=== PATIENT | female | born 1950 | race Two or more races ===

== ENCOUNTER 2018-05-16 13:12 | Emergency (ER) | payer OTHER ==
[2018-05-16 13:17] VITALS: BP 131/61; PULSE 96; TEMP 98; BMI 26.5
--- NOTE | 2018-05-16 13:46 | PDOC ---
History of Present Illness - General Chief Complaint: Pain Stated Complaint: FEVER - History of Present Illness Initial Comments: 67-year-old female presents for evaluation of pelvic pressure and dysuria 2 days without other associated symptoms 05/16/18 13:45 Past History - Past Medical History Allergies/Adverse Reactions: Allergies Allergy/AdvReac Type Severity Reaction Status Date / Time No Known Allergies Allergy Verified 05/16/18 13:21 Home Medications: Ambulatory Orders Nitrofurantoin Monohyd/M-Cryst [Macrobid -] 100 mg PO BID #14 capsule 05/16/18 COPD: No Other medical history: arthitis - Suicide/Smoking/Psychosocial Hx Smoking History: Never smoked Have you smoked in the past 12 months: No Hx Alcohol Use: No Substance Use Type: None Review of Systems - Review of Systems : Yes: Dysuria All Other Systems: Reviewed and Negative *Physical Exam - Vital Signs Last Vital Signs Temp Pulse Resp BP Pulse Ox 98 F 96 H 18 131/61 97 05/16/18 13:15 05/16/18 13:15 05/16/18 13:15 05/16/18 13:15 05/16/18 13:15 - Physical Exam Comments: HEAD: NC/AT EYES: Conjuntiva clear Ears: Canals and TM's normal NOSE: No d/c THROAT: Moist mucous membrances, oral pharanx clear, uvula midline NECK: Supple without adenopathy CARDIAC: S1 S2 LUNGS: CTA Full and Equal breath sounds ABDOMEN: Soft NT ND MS: Full ROM in all joints without edema NEUROLOGIC: No gross sensory or motor deficits, NVID SKIN: Normal color and temperature no lesions or rashes 05/16/18 13:45 *DC/Admit/Observation/Transfer Diagnosis at time of Disposition: UTI (urinary tract infection) - Discharge Dispostion Disposition: HOME Condition at time of disposition: Stable Decision to Admit order: No - Prescriptions Prescriptions: Nitrofurantoin Monohyd/M-Cryst [Macrobid -] 100 mg PO BID #14 capsule - Referrals Referrals: Clem David [Non Staff, Medical] - - Patient Instructions Printed Discharge Instructions: Urinary Tract Infection Additional Instructions: Return to the emergency room should her symptoms worsen or don't resolve. Please take all the antibiotics as directed. Follow up with primary care physician in one to 2 days for further evaluation and treatment options. - Post Discharge Activity
[2018-05-16 14:09] LABS: URINE APPEARANCE CLEAR; URINE BILIRUBIN NEGATIVE (<2.0 mg/dL); URINE COLOR AMBER; URINE GLUCOSE (UA) NEGATIVE (NEGATIVE); URINE KETONE NEGATIVE (NEGATIVE); URINE LEUK ESTERASE NEGATIVE (NEGATIVE); URINE NITRITE POSITIVE (NEGATIVE); URINE PROTEIN NEGATIVE (NEGATIVE)
[2018-05-16 14:15] LABS: EPI CELLS RARE /HPF (FEW); URINE BACTERIA FEW /hpf (NONE SEEN); URINE MUCUS RARE
--- NOTE | 2018-05-16 15:01 | PDOC ---
*Physical Exam - Vital Signs Last Vital Signs Temp Pulse Resp BP Pulse Ox 98 F 96 H 18 131/61 97 05/16/18 13:15 05/16/18 13:15 05/16/18 13:15 05/16/18 13:15 05/16/18 13:15 - Physical Exam General Appearance: Yes: Nourished, Appropriately Dressed. No: Apparent Distress HEENT: positive: EOMI, JELLY Neck: positive: Trachea midline, Supple. negative: Tender, Rigid, Lymphadenopathy (R), Lymphadenopathy (L) Respiratory/Chest: positive: Lungs Clear, Normal Breath Sounds. negative: Rales , Rhonchi, Wheezing Cardiovascular: positive: Regular Rhythm, Regular Rate, S1, S2 (present). negative: Murmur Gastrointestinal/Abdominal: positive: Normal Bowel Sounds, Tender (suprapubic region), Flat, Soft. negative: Distended, Rebound Integumentary: positive: Normal Color, Dry, Warm Neurologic: positive: Fully Oriented, Alert, Normal Mood/Affect, Normal Response , Motor Strength / ED Treatment Course - LABORATORY CBC & Chemistry Diagram: 05/16/18 15:49 05/16/18 15:49 - ADDITIONAL ORDERS Additional order review: Laboratory Results 05/16/18 13:53 Urine Color Sweetie Urine Appearance Clear Urine pH 5.0 Ur Specific [place] 1.018 Urine Protein Negative Urine Glucose (UA) Negative Urine Ketones Negative Urine Blood Negative Urine Nitrite Positive Urine Bilirubin Negative Urine Urobilinogen 2.0 H Ur Leukocyte Esterase Negative Urine WBC (Auto) 1 Urine RBC (Auto) <1 Ur Epithelial Cells Rare Urine Bacteria Few Urine Mucus Rare Medical Decision Making - Medical Decision Making 05/16/18 16:38 Sign out received from MARY Armstrong as this patient was elevated from fast track to the main ER. Patient diagnosed with UTI and fast track. When with discharge patient states that she is very dizzy. Was elevated for dizziness workup. 1.labs 2.IV fluids, ceftriaxone 3.reevaluate 05/16/18 18:40 Patient states that she feels much better after IV fluids. States that the dizziness had resolved. However upon planning discharge, patient states that when she sat up the room started spinning again I suspect the patient may have vertigo at this time. Patient given meclizine and head CT ordered. Sign out given to MARY Addison. Pending head CT at this time. *DC/Admit/Observation/Transfer Diagnosis at time of Disposition: Vertigo UTI (urinary tract infection) Qualifiers: Urinary tract infection type: acute cystitis Hematuria presence: without hematuria Qualified Code(s): N30.00 - Acute cystitis without hematuria - Discharge Dispostion Disposition: HOME Condition at time of disposition: Stable - Prescriptions Prescriptions: Meclizine HCl [Antivert -] 25 mg PO BID PRN #14 tablet PRN Reason: Vertigo Nitrofurantoin Monohyd/M-Cryst [Macrobid -] 100 mg PO BID #14 capsule Phenazopyridine HCl [Pyridium -] 100 mg PO TID #15 tablet - Referrals Referrals: Clem David [Non Staff, Medical] - Luis Pemberton MD [Staff Physician] - - Patient Instructions Printed Discharge Instructions: Urinary Tract Infection, DI for Vertigo Additional Instructions: You have a urinary tract infection. This caused by bacteria. Please drink plenty of fluids. Take your antibiotics as prescribed. Finish the entire dose even if you feel better. You may take Tylenol or Motrin as needed for pain. Follow the manufacture's instructions Please follow up with your primary care doctor this week. Return to the emergency department if you have fevers, chills, nausea, vomiting , back pain, or have any changes in your symptoms. Be sure to follow-up with the neurologist listed on your discharge/Dr. Pemberton - Post Discharge Activity Forms/Work/School Notes: Back to Work, Parent(s) Back to Work Note
[2018-05-16] MEDS ORDERED: SODIUM CHLORIDE 1,000 ML IV STA (15:31)
[2018-05-16] MEDS ORDERED: CEFTRIAXONE 1,000 MG in DEXTROSE 5%-WATER - 50 ML IVPB ONE (15:31)
[2018-05-16] MEDS ORDERED: CEFTRIAXONE 1 GM/50 ML BAG ONE (15:39)
[2018-05-16 16:02] LABS: BASO % 0.4 % (0-2.0); EOS % 3.8 % (0-4.5); HEMOGLOBIN 12.5 GM/dL (10.7-15.3); LYMPH % 26.5 % (8-40); MCH 28.8 pg (25.7-33.7); MCHC 33.9 g/dl (32.0-36.0); MEAN CELL VOLUME 84.9 fl (80-96); MEAN PLT VOLUME 10.5 fl (7.5-11.1); MONO % 6.6 % (3.8-10.2); NEUT % 62.7 % (42.8-82.8); PLATELET COUNT 180 K/MM3 (134-434); RBC 4.36 M/mm3 (3.60-5.2); RDW 13.8 % (11.6-15.6); WHITE BLOOD COUNT 10.4 K/mm3 (4.0-10.0)
--- NOTE | 2018-05-16 16:07 | PDOC ---
*Physical Exam - Vital Signs Last Vital Signs Temp Pulse Resp BP Pulse Ox 98 F 96 H 18 131/61 97 05/16/18 13:15 05/16/18 13:15 05/16/18 13:15 05/16/18 13:15 05/16/18 13:15 ED Treatment Course - LABORATORY CBC & Chemistry Diagram: 05/16/18 15:49 05/16/18 15:49 - ADDITIONAL ORDERS Additional order review: Laboratory Results 05/16/18 13:53 Urine Color Sweetie Urine Appearance Clear Urine pH 5.0 Ur Specific [place] 1.018 Urine Protein Negative Urine Glucose (UA) Negative Urine Ketones Negative Urine Blood Negative Urine Nitrite Positive Urine Bilirubin Negative Urine Urobilinogen 2.0 H Ur Leukocyte Esterase Negative Urine WBC (Auto) 1 Urine RBC (Auto) <1 Ur Epithelial Cells Rare Urine Bacteria Few Urine Mucus Rare 05/16/18 15:49 RBC 4.36 MCV 84.9 MCHC 33.9 RDW 13.8 MPV 10.5 Neutrophils % 62.7 Lymphocytes % 26.5 Monocytes % 6.6 Eosinophils % 3.8 D Basophils % 0.4 - Medications Given in the ED: ED Medications Discontinued Medications Generic Name Dose Route Start Last Admin Trade Name Freq PRN Reason Stop Dose Admin Ceftriaxone Sodium 1,000 mg/ 50 mls @ 100 mls/hr 05/16/18 15:31 05/16/18 15: 55 Dextrose IVPB 05/16/18 16:00 100 mls/hr ONCE ONE Administration Medical Decision Making - Medical Decision Making 05/16/18 16:06 Case discussed with MARY Queen. Plan as MARY Queen. *DC/Admit/Observation/Transfer Diagnosis at time of Disposition: UTI (urinary tract infection) - Discharge Dispostion Disposition: HOME Condition at time of disposition: Stable - Prescriptions Prescriptions: Nitrofurantoin Monohyd/M-Cryst [Macrobid -] 100 mg PO BID #14 capsule - Referrals Referrals: Clem David [Non Staff, Medical] - - Patient Instructions Printed Discharge Instructions: Urinary Tract Infection Additional Instructions: Return to the emergency room should her symptoms worsen or don't resolve. Please take all the antibiotics as directed. Follow up with primary care physician in one to 2 days for further evaluation and treatment options. - Post Discharge Activity
[2018-05-16 16:25] LABS: ALBUMIN 3.5 g/dl (3.4-5.0); ALK PHOS 96 U/L (45-117); ANION GAP 4 (8-16); BILIRUBIN,TOTAL 0.5 mg/dL (0.2-1.0); BLOOD UREA NITROGEN 16 mg/dL (7-18); CALCIUM 9.2 mg/dL (8.5-10.1); CHLORIDE 107 mmol/L (98-107); CO2 29 mmol/L (21-32); CREATININE 0.7 mg/dL (0.55-1.02); GLUCOSE,RANDOM 95 mg/dL (74-106); POTASSIUM 4.1 mmol/L (3.5-5.1); SGOT/AST 18 U/L (15-37); SGPT/ALT 28 U/L (12-78); SODIUM 140 mmol/L (136-145); TOT PROT 7.4 g/dl (6.4-8.2)
[2018-05-16] MEDS ORDERED: MECLIZINE HCL 25 MG TABLET (FP) ONE (18:12)
[2018-05-16] MEDS ORDERED: MECLIZINE HCL 25 MG TABLET (FP) PO ONE (18:13)
--- NOTE | 2018-05-16 19:46 | PDOC ---
*Physical Exam - Vital Signs Last Vital Signs Temp Pulse Resp BP Pulse Ox 98 F 96 H 18 131/61 97 05/16/18 13:15 05/16/18 13:15 05/16/18 13:15 05/16/18 13:15 05/16/18 13:15 ED Treatment Course - LABORATORY CBC & Chemistry Diagram: 05/16/18 15:49 05/16/18 15:49 - ADDITIONAL ORDERS Additional order review: Laboratory Results 05/16/18 05/16/18 15:49 13:53 Sodium 140 Potassium 4.1 Chloride 107 Carbon Dioxide 29 Anion Gap 4 L BUN 16 Creatinine 0.7 Creat Clearance w eGFR > 60 Random Glucose 95 Calcium 9.2 Total Bilirubin 0.5 AST 18 ALT 28 Alkaline Phosphatase 96 Total Protein 7.4 Albumin 3.5 Urine Color Sweetie Urine Appearance Clear Urine pH 5.0 Ur Specific [place] 1.018 Urine Protein Negative Urine Glucose (UA) Negative Urine Ketones Negative Urine Blood Negative Urine Nitrite Positive Urine Bilirubin Negative Urine Urobilinogen 2.0 H Ur Leukocyte Esterase Negative Urine WBC (Auto) 1 Urine RBC (Auto) <1 Ur Epithelial Cells Rare Urine Bacteria Few Urine Mucus Rare 05/16/18 15:49 RBC 4.36 MCV 84.9 MCHC 33.9 RDW 13.8 MPV 10.5 Neutrophils % 62.7 Lymphocytes % 26.5 Monocytes % 6.6 Eosinophils % 3.8 D Basophils % 0.4 - Medications Given in the ED: ED Medications Discontinued Medications Generic Name Dose Route Start Last Admin Trade Name Freq PRN Reason Stop Dose Admin Ceftriaxone Sodium 1,000 mg/ 50 mls @ 100 mls/hr 05/16/18 15:31 05/16/18 15: 55 Dextrose IVPB 05/16/18 16:00 100 mls/hr ONCE ONE Administration Sodium Chloride 1,000 mls @ 1,000 mls/hr 05/16/18 15:31 05/16/18 15:55 Normal Saline - IV 05/16/18 16:30 1,000 mls/hr ASDIR STA Administration Meclizine HCl 50 mg 05/16/18 18:13 05/16/18 18:27 Antivert - PO 05/16/18 18:14 50 mg ONCE ONE Administration Progress Note - Progress Note Progress Note: 1901hrs: Pt feels fine now. Denies any dizziness. *DC/Admit/Observation/Transfer Diagnosis at time of Disposition: Vertigo UTI (urinary tract infection) Qualifiers: Urinary tract infection type: acute cystitis Hematuria presence: without hematuria Qualified Code(s): N30.00 - Acute cystitis without hematuria - Discharge Dispostion Disposition: HOME Condition at time of disposition: Stable - Prescriptions Prescriptions: Meclizine HCl [Antivert -] 25 mg PO BID PRN #14 tablet PRN Reason: Vertigo Nitrofurantoin Monohyd/M-Cryst [Macrobid -] 100 mg PO BID #14 capsule Phenazopyridine HCl [Pyridium -] 100 mg PO TID #15 tablet - Referrals Referrals: Clem David [Non Staff, Medical] - Luis Pemberton MD [Staff Physician] - - Patient Instructions Printed Discharge Instructions: Urinary Tract Infection, DI for Vertigo Additional Instructions: You have a urinary tract infection. This caused by bacteria. Please drink plenty of fluids. Take your antibiotics as prescribed. Finish the entire dose even if you feel better. You may take Tylenol or Motrin as needed for pain. Follow the manufacture's instructions Please follow up with your primary care doctor this week. Return to the emergency department if you have fevers, chills, nausea, vomiting , back pain, or have any changes in your symptoms. Be sure to follow-up with the neurologist listed on your discharge/Dr. Pemberton - Post Discharge Activity Forms/Work/School Notes: Back to Work, Parent(s) Back to Work Note
== END 2018-05-16 20:16 | disposition home or self-care (01) ==
LOC: JER 13:12
PROC: 3E03329 Introduction of Other Anti-infective into Peripheral Vein, Percutaneous Approach (ICD-10-PCS; principal; 2018-05-16)
PROC: 3E0337Z Introduction of Electrolytic and Water Balance Substance into Peripheral Vein, Percutaneous Approach (ICD-10-PCS; 2018-05-16)
DX: N30.00 Acute cystitis without hematuria (principal); R42 Dizziness and giddiness
CPT/HCPCS: 36415; 70450-TC; 80053; 81003; 81015; 85025; 87086; 99283-25; J7030

== ENCOUNTER → 2019-06-15 | Outpatient (CLI) | payer OTHER | LOC: YHH 14:44 ==

== ENCOUNTER 2019-07-26 09:15 | Day surgery (SDC) | payer OTHER ==
[2019-07-25 11:15] VITALS: BMI 31.2
[~2019-07-26 09:15] MED LIST: ACETAMINOPHEN 325 MG TABLET (FP) PO PRN
[2019-07-26] MEDS ORDERED: MIDAZOLAM HCL 2 MG/2 ML SINGLE DOSE VIAL ONE (09:30)
[2019-07-26] MEDS ORDERED: CYCLOPENTOLATE HCL 1% OPHTH SOLN 2 ML BOTTLE ONE ×2 (09:32→09:39)
[2019-07-26] MEDS ORDERED: KETOROLAC TROMETHAMINE 0.5% EYE DROP 1 DROP DROPS ONE ×2 (09:32→09:40)
[2019-07-26] MEDS ORDERED: OFLOXACIN 0.3% OPHTHALMIC SOLUTION 5 ML BOTTLE ONE ×2 (09:32→09:39)
[2019-07-26] MEDS ORDERED: TROPICAMIDE 1% OPHTH SOLN 15 ML BOTTLE ONE ×2 (09:32→09:40)
[2019-07-26] MEDS ORDERED: PHENYLEPHRINE 2.5% OPHTH SOLN 15 ML BOTTLE ONE ×2 (09:32→09:39)
[2019-07-26] MEDS: PHENYLEPHRINE 2.5% OPHTH SOLN 15 ML BOTTLE OP SCH ×2 (09:40→09:50)
[2019-07-26] MEDS: CYCLOPENTOLATE HCL 1% OPHTH SOLN 2 ML BOTTLE OP SCH ×2 (09:40→09:50)
[2019-07-26] MEDS: KETOROLAC TROMETHAMINE 0.5% EYE DROP 1 DROP DROPS OP SCH ×2 (09:40→09:50)
[2019-07-26] MEDS: TROPICAMIDE 1% OPHTH SOLN 15 ML BOTTLE OP SCH ×2 (09:40→09:50)
[2019-07-26] MEDS: OFLOXACIN 0.3% OPHTHALMIC SOLUTION 5 ML BOTTLE OP SCH ×2 (09:50→09:53)
[2019-07-26] MEDS ORDERED: CYCLOPENTOLATE HCL 1% OPHTH SOLN 2 ML BOTTLE OS ONE (10:21)
[2019-07-26] MEDS ORDERED: OFLOXACIN 0.3% OPHTHALMIC SOLUTION 5 ML BOTTLE OS ONE (10:21)
[2019-07-26] MEDS ORDERED: KETOROLAC TROMETHAMINE 0.5% EYE DROP 1 DROP DROPS OS ONE (10:21)
[2019-07-26] MEDS ORDERED: TROPICAMIDE 1% OPHTH SOLN 15 ML BOTTLE OS ONE (10:22)
[2019-07-26] MEDS ORDERED: PHENYLEPHRINE 2.5% OPHTH SOLN 15 ML BOTTLE OS ONE (10:22)
[2019-07-26] MEDS ORDERED: TETRACAINE 0.5% OPHTH SOLN 2 ML BOTTLE OS ONE (11:15)
[2019-07-26] MEDS ORDERED: POVIDONE-IODINE 5% OPHTHALMIC PREP 30 ML SOLUTION OS ONE (11:16)
[2019-07-26] MEDS ORDERED: CHONDROITIN SU A/HYALUR SOD 1 KIT IO ONE (11:24)
[2019-07-26] MEDS ORDERED: BSS (NA/CA/MG/K) BALANCED SALT SOLUTION OPHTH SOLN 15 ML BOTTLE OS ONE (11:24)
[2019-07-26] MEDS ORDERED: LIDOCAINE HCL 1% PRESERVATIVE FREE - 30ML VIAL IO ONE (11:24)
[2019-07-26] MEDS ORDERED: EPINEPHrine/PF 1 MG/1 ML (1:1,000) AMPULE SQ ONE (11:28)
[2019-07-26 12:53] VITALS: BP 133/62; PULSE 90; TEMP 98.2
--- NOTE | 2019-07-31 15:54 | SPEC ---
DATE OF OPERATION: 07/26/2019 OPERATION: Phacoemulsification of left cataract with posterior chamber intraocular lens implantation, left eye. Lens used [id number], 19.5 Diopter power, Serial No. [id number]. PREOPERATIVE DIAGNOSIS: Cataract, left eye. POSTOPERATIVE DIAGNOSIS: Cataract, left eye. SURGEON: Vania Mcdowell M.D. ANESTHESIA: Topical MAC. COMPLICATIONS: None. PROCEDURE: The patient was brought to the operating room and correctly identified along with the operative site and the correct intraocular lens johansen. The patient was then prepped and draped in the usual sterile fashion including 5% Betadine solution in the conjunctival sac and an eyelid drape. An eyelid speculum was then placed in the eye. A paracentesis port was created and approximately 0.5 mL of preservative free Lidocaine was then injected into the eye. Viscoelastic was then injected to inflate the anterior chamber. A temporal clear corneal wound was created. A continuous circular capsulorrhexis was performed. The nucleus was then hydrodissected with BSS and removed with phacoemulsification. The remaining cortical material was irrigated and aspirated. Viscoelastic was injected to inflate the capsular bag and the intraocular lens was then implanted into the capsular bag. The remaining Viscoelastic was irrigated and aspirated from the eye. The IOL was noted to be well centered and completely covered by the anterior capsulorrhexis. Topical vancomycin was placed and the eye patched and shielded. All wounds were tested and found to be watertight. No suture was placed. The eye was then shielded. The patient was then discharged from the operating room in stable condition. VANIA MCDOWELL M.D. [id number]
== END 2019-07-26 12:54 | disposition home or self-care (01) ==
LOC: JASU-SURG 09:15
PROVIDERS: ATTEND Ophthalmology
PROC: 08RK3JZ Replacement of Left Lens with Synthetic Substitute, Percutaneous Approach (ICD-10-PCS; principal; 2019-07-26 11:00)
DX: H26.9 Unspecified cataract (principal)

== ENCOUNTER 2019-09-20 06:31 | Day surgery (SDC) | payer OTHER ==
[2019-09-18 15:20] VITALS: BMI 31.2
[~2019-09-20 06:31] MED LIST changes: +CHONDROITIN SU A/HYALUR SOD 1 KIT IO ONE; +EPINEPHrine/PF 1 MG/1 ML (1:1,000) AMPULE SQ ONE; +LIDOCAINE HCL 1% PRESERVATIVE FREE - 30ML VIAL IO ONE; +TETRACAINE 0.5% OPHTH SOLN 2 ML BOTTLE TP ONE; +TROPICAMIDE 1% OPHTH SOLN 15 ML BOTTLE OP SCH
[2019-09-20] MEDS ORDERED: OFLOXACIN 0.3% OPHTHALMIC SOLUTION 5 ML BOTTLE ONE (06:47)
[2019-09-20] MEDS ORDERED: PHENYLEPHRINE 2.5% OPHTH SOLN 15 ML BOTTLE ONE (06:48)
[2019-09-20] MEDS ORDERED: CYCLOPENTOLATE HCL 1% OPHTH SOLN 2 ML BOTTLE ONE (06:48)
[2019-09-20] MEDS ORDERED: KETOROLAC TROMETHAMINE 0.5% EYE DROP 1 DROP DROPS ONE (06:48)
[2019-09-20] MEDS ORDERED: CHONDROITIN SU A/HYALUR SOD 1 KIT ONE (07:04)
[2019-09-20] MEDS ORDERED: EPINEPHrine/PF 1 MG/1 ML (1:1,000) AMPULE ONE (07:08)
[2019-09-20] MEDS ORDERED: LIDOCAINE HCL/PF 1% SDV 5ML VIAL ONE (07:08)
[2019-09-20] MEDS ORDERED: VANCOMYCIN 500 MG VIAL (RESTRICTED TO ID ONLY) ONE (07:08)
[2019-09-20] MEDS: CYCLOPENTOLATE HCL 1% OPHTH SOLN 2 ML BOTTLE OP SCH ×3 (07:09→07:24)
[2019-09-20] MEDS: KETOROLAC TROMETHAMINE 0.5% EYE DROP 1 DROP DROPS OP SCH ×3 (07:09→07:24)
[2019-09-20] MEDS: OFLOXACIN 0.3% OPHTHALMIC SOLUTION 5 ML BOTTLE OP SCH ×3 (07:09→07:24)
[2019-09-20] MEDS ORDERED: WATER FOR INJ,STERILE 10 ML ONE (07:09)
[2019-09-20] MEDS ORDERED: TRYPAN BLUE 0.5 ML DISP.SYRIN ONE (07:09)
[2019-09-20] MEDS ORDERED: POVIDONE-IODINE 5% OPHTHALMIC PREP 30 ML SOLUTION ONE (07:09)
[2019-09-20] MEDS ORDERED: ACETYLCHOLINE 1:100 INTRA-OCUL 20 MG/2 ML KIT ONE (07:09)
[2019-09-20] MEDS: PHENYLEPHRINE 2.5% OPHTH SOLN 15 ML BOTTLE OP SCH ×3 (07:09→07:24)
[2019-09-20] MEDS ORDERED: TETRACAINE 0.5% OPHTH SOLN 2 ML BOTTLE ONE (07:09)
[2019-09-20] MEDS: TROPICAMIDE 1% OPHTH SOLN 15 ML BOTTLE ONE ×2 (07:14→07:24)
[2019-09-20] MEDS ORDERED: MIDAZOLAM HCL 2 MG/2 ML SINGLE DOSE VIAL ONE (07:42)
[2019-09-20] MEDS ORDERED: TETRACAINE 0.5% OPHTH SOLN 2 ML BOTTLE TP ONE (08:06)
[2019-09-20] MEDS ORDERED: LIDOCAINE HCL 1% PRESERVATIVE FREE - 30ML VIAL IO ONE (08:16)
[2019-09-20] MEDS ORDERED: CHONDROITIN SU A/HYALUR SOD 1 KIT IO ONE (08:16)
[2019-09-20] MEDS ORDERED: EPINEPHrine/PF 1 MG/1 ML (1:1,000) AMPULE SQ ONE (08:22)
[2019-09-20] MEDS ORDERED: ONDANSETRON 4 MG/2 ML VIAL IVPUSH PRN (09:06)
[2019-09-20] MEDS ORDERED: LACTATED RINGERS SOLUTION 1,000 ML IV SCH (09:15)
[2019-09-20 09:57] VITALS: BP 144/66; PULSE 90; TEMP 98.3
--- NOTE | 2019-09-20 10:01 | SPEC ---
DATE OF OPERATION: DATE OF DICTATION: 09/20/2019 PREOPERATIVE DIAGNOSIS: Cataract, right eye. POSTOPERATIVE DIAGNOSIS: Cataract, right eye. OPERATION: Phacoemulsification with posterior chamber intraocular lens implantation, right eye. Lens used [id number], 20.0 diopter power, serial number [id number]. SURGEON: Vania Mcdowell M.D. ANESTHESIA: Topical MAC. COMPLICATIONS: None. PROCEDURE: The patient was brought to the operating room and correctly identified along with the operative site and the correct intraocular lens johansen. The patient was then prepped and draped in the usual sterile fashion including 5% Betadine solution in the conjunctival sac and an eyelid drape. An eyelid speculum was then placed in the eye. A paracentesis port was created and approximately 0.5 mL of preservative free Lidocaine was then injected into the eye. Viscoelastic was then injected to inflate the anterior chamber. A temporal clear corneal wound was created. A continuous circular capsulorrhexis was performed. The nucleus was then hydrodissected with BSS and removed with phacoemulsification. The remaining cortical material was irrigated and aspirated. Viscoelastic was injected to inflate the capsular bag and the intraocular lens was then implanted into the capsular bag. The remaining Viscoelastic was irrigated and aspirated from the eye. The IOL was noted to be well centered and completely covered by the anterior capsulorrhexis. Topical vancomycin was placed and the eye patched and shielded. All wounds were tested and found to be watertight. No suture was placed. The eye was then shielded. The patient was then discharged from the operating room in stable condition. VANIA MCDOWELL M.D. [id number]
== END 2019-09-20 09:50 | disposition home or self-care (01) ==
LOC: JASU-SURG 06:31
PROVIDERS: ATTEND Ophthalmology
PROC: 08RJ3JZ Replacement of Right Lens with Synthetic Substitute, Percutaneous Approach (ICD-10-PCS; principal; 2019-09-20 08:00)
DX: H26.9 Unspecified cataract (principal)

== ENCOUNTER 2019-11-10 23:20 | Emergency (ER) | payer OTHER ==
[2019-11-10 23:41] VITALS: BMI 35.2
[2019-11-11] MEDS ORDERED: morphine CARPU-JECT 4 MG/1 ML DISP.SYRIN IVPUSH ONE ×3 (00:03→01:14)
[2019-11-11] MEDS ORDERED: LACTATED RINGERS SOLUTION 1000 ML INFUS.BAG IV ONE ×2 (00:06→00:55)
[2019-11-11] MEDS ORDERED: ONDANSETRON 4 MG/2 ML VIAL IVPB ONE (00:06)
[2019-11-11] MEDS ORDERED: MORPHINE SULFATE 8 MG/ML VIAL ONE (00:11)
[2019-11-11] MEDS ORDERED: ONDANSETRON 4 MG/2 ML VIAL ONE (00:12)
[2019-11-11 00:41] LABS: BASO % 0.3 % (0-2.0); EOS % 0.2 % (0-4.5); HEMATOCRIT 46.2 % (32.4-45.2); HEMOGLOBIN 14.8 GM/dL (10.7-15.3); LYMPH % 28.1 % (8-40); MCH 27.7 pg (25.7-33.7); MCHC 31.9 g/dl (32.0-36.0); MEAN CELL VOLUME 86.9 fl (80-96); MONO % 2.8 % (3.8-10.2); NEUT % 68.6 % (42.8-82.8); PLATELET COUNT 343 K/MM3 (134-434); RBC 5.32 M/mm3 (3.60-5.2); RDW 14.1 % (11.6-15.6); WHITE BLOOD COUNT 13.9 K/mm3 (4.0-10.0)
--- NOTE | 2019-11-11 00:43 | PDOC ---
Documentation entered by Lavinia Haywood SCRIBE, acting as scribe for Jessica Pace MD. Jessica Pace MD: This documentation has been prepared by the Chastity simeon Nirvannie, SCRIBE, under my direction and personally reviewed by me in its entirety. I confirm that the documentation accurately reflects all work, treatment, procedures, and medical decision making performed by me. Attending Attestation - Resident Resident Name: EnedinaTami - ED Attending Attestation I have performed the following: I have examined & evaluated the patient, The case was reviewed & discussed with the resident, I agree w/resident's findings & plan, Exceptions are as noted - HPI HPI: 11/11/19 00:46 The patient is a 68 year old female, with a significant past medical history of , who presents to the emergency department with 1 day of diffuse abdominal pain. As per patient and family at bedside, patient had a colonoscopy today at [facility] and since then she has been experiencing diffuse abdominal pain. She endorses associated nausea with multiple episodes of NBNB emesis. Patient was advised upon discharge she should report to the ED for further evaluation for persistent or worsening abdominal pain. Allergies: NKDA Primary Care Physician: Dr. Trent - Physicial Exam PE: GENERAL: Awake, alert, and fully oriented, in obvious discomfort, writhing on bed, tearful HEAD: No signs of trauma EYES: PERRLA, EOMI, sclera anicteric, conjunctiva clear ENT: Auricles normal inspection, hearing grossly normal, nares patent, oropharynx clear without exudates. Dry mucosa NECK: Normal ROM, supple, no lymphadenopathy, JVD, or masses LUNGS: Breath sounds equal, clear to auscultation bilaterally. No wheezes, and no crackles HEART: Regular rate and rhythm, normal S1 and S2, no murmurs, rubs or gallops ABDOMEN: Soft, distended, diffusely tender, normoactive bowel sounds. +Guarding , +rebound. No masses EXTREMITIES: Normal range of motion, no edema. No clubbing or cyanosis. No cords, erythema, or tenderness NEUROLOGICAL: Cranial nerves II through XII grossly intact. Normal speech, normal gait. Motor and sensation intact SKIN: Warm, dry, normal turgor, no rashes or lesions noted. - Medical Decision Making 11/10/19 23:59 Pt presents in severe pain, writhing on the bed, pale. High suspicion for perforation. IV placed to R AC. Will order pain medication and antiemetic. Stat CT a/p. 11/11/19 00:41 CT reviewed, appears to show free air. Contacted Imaging concrete boom pump operator to verify. Will contact patient's GI at [facility] to discuss. EXAM: CT abdomen and pelvis without contrast FINDINGS: Mild atelectasis and scarring in lung bases. 3 mm subpleural left lower lobe nodule. No pleural effusion. Hepatic steatosis. *Mild perihepatic and perisplenic fluid which is slightly dense. Cannot exclude blood products The gallbladder, pancreas, and adrenal glands are grossly unremarkable. 2 mm nonobstructing left intrarenal calcification. No ureteral calculi or hydronephrosis. No AAA. Generalized mesenteric edema in the lower pelvis and mild free pelvic fluid. *Moderate pneumoperitoneum, compatible with a perforated viscus. The site of perforation is not seen with certainty. Mild small bowel wall thickening in the left abdomen. No obvious appendicitis or small bowel obstruction. Leiomyomatous uterus. Read by: Luis Arita MD 11/11/19 01:05 Call placed to [facility], made aware Dr. Castro is industrial controls technician, resident Dr. Kamlesh Mcconnell discussed case. 11/11/19 01:10 Call placed to [facility], awaiting call back from the general surgeon. 1:45AM Second call placed to [facility] resident Dr. Mcconnell discussed case with Dr. Doe and case was accepted.
--- NOTE | 2019-11-11 00:46 | PDOC ---
History of Present Illness - General Chief Complaint: Pain, Acute Stated Complaint: ABDOMINAL PAIN Time Seen by Provider: 11/10/19 23:58 History Source: Patient Exam Limitations: Language Barrier - History of Present Illness Initial Comments: 11/11/19 00:44 68y F with PMH of GERD presenting to ED with complaints of abdominal pain. Pt had a colonoscopy around 12h ago and has been having abdominal pain ever since. She was discharged and told to go the ER if her pain continues or gets worse. Pt is endorsing diffuse abdominal pain. Has not passed gas or had a bowel movement since the colonoscopy. Endorses 1 episode of emesis. Past History - Past Medical History Allergies/Adverse Reactions: Allergies Allergy/AdvReac Type Severity Reaction Status Date / Time No Known Allergies Allergy Verified 09/20/19 07:08 Home Medications: Ambulatory Orders Unobtainable 11/11/19 Anemia: No Asthma: No Cancer: No Cardiac Disorders: No CVA: No COPD: No CHF: No Dementia: No Diabetes: No GI Disorders: No Disorders: No HTN: No Hypercholesterolemia: No Liver Disease: No Seizures: No Thyroid Disease: No - Psycho Social/Smoking Cessation Hx Smoking History: Never smoked Have you smoked in the past 12 months: No Information on smoking cessation initiated: No Hx Alcohol Use: No Drug/Substance Use Hx: No Substance Use Type: None Review of Systems - Review of Systems Constitutional: No: Symptoms Reported HEENTM: No: Symptoms Reported Respiratory: No: Symptoms reported Cardiac (ROS): Yes: See HPI. No: Symptoms Reported ABD/GI: Yes: See HPI : No: Symptoms Reported Musculoskeletal: No: Symptoms Reported Integumentary: No: Symptoms Reported *Physical Exam - Vital Signs Last Vital Signs Temp Pulse Resp BP Pulse Ox 98.0 F 120 H 22 H 194/140 H 92 L 11/10/19 23:38 11/10/19 23:38 11/10/19 23:38 11/10/19 23:38 11/10/19 23:38 - Physical Exam General Appearance: Yes: Severe Distress, Obese HEENT: positive: EOMI, JELLY Neck: positive: Trachea midline, Supple. negative: Lymphadenopathy (R), Lymphadenopathy (L) Respiratory/Chest: positive: Lungs Clear, Normal Breath Sounds. negative: Paradoxal Breathing, Crackles, Rales, Rhonchi, Stridor, Wheezing Cardiovascular: positive: S1, S2, Tachycardia. negative: Edema, JVD, Murmur Vascular Pulses: Dorsalis-Pedis (R): 2+, Doralis-Pedis (L): 2+ Gastrointestinal/Abdominal: positive: Distended, Guarding, Rebound, Tenderness Extremity: positive: Normal Capillary Refill Integumentary: positive: Normal Color, Dry, Warm Neurologic: positive: employment appeals examiner II-XII NML intact, Fully Oriented, Alert, Normal Mood/ Affect, Normal Response, Motor Strength 02/12 ED Treatment Course - LABORATORY CBC & Chemistry Diagram: 11/11/19 00:06 11/11/19 00:06 - RADIOLOGY Radiology Studies Ordered: Category Date Time Status ABDOMEN & PELVIS CT W/O CONTR [CT] Stat CT Scan 11/11/19 00:01 Taken - Medications Given in the ED: ED Medications Discontinued Medications Generic Name Dose Route Start Last Admin Trade Name Freq PRN Reason Stop Dose Admin Lactated Ringer's 1,000 ml 11/11/19 00:06 11/11/19 00:17 Lactated Ringers Solution IV 11/11/19 00:07 1,000 ml NOW ONE Administration Morphine Sulfate 4 mg 11/11/19 00:03 11/11/19 00:18 Morphine Injection - IVPUSH 11/11/19 00:04 Not Given ONCE ONE Morphine Sulfate 6 mg 11/11/19 00:05 11/11/19 00:16 Morphine Injection - IVPUSH 11/11/19 00:06 6 mg ONCE ONE Administration Ondansetron HCl 4 mg 11/11/19 00:06 11/11/19 00:17 Zofran Injection IVPB 11/11/19 00:07 4 mg ONCE ONE Administration Medical Decision Making - Medical Decision Making 11/11/19 07:58 68y F presenting to ED with abdominal pain s/p colonoscopy. pt is diffusely tender with rebound and guarding. tachycardic, saturating well on RA, normotensive, afebrile. suspicion for perforation. preop labs, fluids, zofran, morphine. CTAP. CT positive for pneumoperitoneum, FF. given more fluids and morphine, zosyn. labs show leukocytosis but normal h/h. call placed to GI clinic in regards to patient status. Called [facility] for transfer given pt had outpt colonsocpoy at [facility]. spoke to Dr. Lopez. accepted transfer. Discharge - Discharge Information Problems reviewed: Yes Clinical Impression/Diagnosis: Perforated abdominal viscus Condition: Stable Disposition: TRANSFER ACUTE CARE/OTHER HOSP - Follow up/Referral Referrals: Rodolfo Trent MD [Staff Physician] - - Patient Discharge Instructions - Post Discharge Activity - Transfer to Acute Care Facility [facility]
[2019-11-11] MEDS ORDERED: PIPERACILLIN/TAZOB 3.375 GM 3.375 GM in DEXTROSE 5%-WATER - 50 ML IVPB ONE (00:55)
[2019-11-11] MEDS ORDERED: PIPERACILLIN/TAZOB 3.375 GM 3.375 GM/50 ML BAG IVPB ONE (01:02)
[2019-11-11] MEDS ORDERED: morphine SULFATE 4 MG/ML VIAL ONE (01:17)
[2019-11-11 01:28] LABS: INR 1.11 (0.83-1.09); PROTHROMBIN TIME (PATIENT) 13.1 SEC (9.7-13.0)
[2019-11-11 01:33] LABS: ALBUMIN 3.8 g/dl (3.4-5.0); BILIRUBIN,TOTAL 0.6 mg/dL (0.2-1); BLOOD UREA NITROGEN 19.3 mg/dL (7-18); CALCIUM 9.6 mg/dL (8.5-10.1); CREATININE 1.4 mg/dL (0.55-1.3); POTASSIUM 3.6 mmol/L (3.5-5.1); TOT PROT 7.9 g/dl (6.4-8.2)
[2019-11-11] MEDS ORDERED: HYDROmorphone HCL CARPU-JECT 2 MG/1 ML DISP.SYRIN IVPUSH ONE (02:02)
[2019-11-11] MEDS ORDERED: HYDROmorphone HCl 2 MG/ML VIAL ONE (02:08)
[2019-11-11 03:00] VITALS: BP 143/69; PULSE 158; TEMP 98.8
--- NOTE | 2019-11-11 15:48 | EKG ---
Test Reason : Blood Pressure : / mmHG Vent. Rate : 155 BPM Atrial Rate : 155 BPM P-R Int : 120 ms QRS Dur : 080 ms QT Int : 320 ms P-R-T Axes : 025 064 037 degrees QTc Int : 514 ms SINUS TACHYCARDIA MARKED T-WAVE ABNORMALITY, CONSIDER INFEROLATERAL ISCHEMIA ABNORMAL ECG Confirmed by MD ANITRA, CALLY ([id number]) on 11/11/2019 3:48:04 PM Referred By: Confirmed By:CALLY AYOUB MD
== END 2019-11-11 03:29 | disposition short-term general hospital (02) ==
LOC: JER 23:20
PROC: 3E03329 Introduction of Other Anti-infective into Peripheral Vein, Percutaneous Approach (ICD-10-PCS; principal; 2019-11-10)
PROC: 3E033NZ Introduction of Analgesics, Hypnotics, Sedatives into Peripheral Vein, Percutaneous Approach (ICD-10-PCS; 2019-11-10)
PROC: 3E033NZ Introduction of Analgesics, Hypnotics, Sedatives into Peripheral Vein, Percutaneous Approach (ICD-10-PCS; 2019-11-10)
PROC: 3E033GC Introduction of Other Therapeutic Substance into Peripheral Vein, Percutaneous Approach (ICD-10-PCS; 2019-11-10)
DX: K66.8 Other specified disorders of peritoneum (principal); Y65.8 Other specified misadventures during surgical and medical care
CPT/HCPCS: 36415; 74176-TC; 80053; 85025; 85610; 85730; 86850; 86900; 86901; 93005; 93010; 96365; 96375; 96376; 99284-25

== ENCOUNTER 2025-03-15 06:50 | Day surgery (SDC) | payer OTHER ==
[2025-03-14 11:40] VITALS: BMI 32.8
[2025-03-15 10:43] VITALS: TEMP 97.2
[2025-03-15 10:55] VITALS: RESP 15
[2025-03-15 11:16] VITALS: BP 126/86; PULSE 78
== END 2025-03-15 11:33 | disposition home or self-care (01) ==
LOC: JASU-ENDO 06:50
PROVIDERS: ATTEND Internal Medicine Gastroenterology
PROC: 0DB68ZX Excision of Stomach, Via Natural or Artificial Opening Endoscopic, Diagnostic (ICD-10-PCS; 2025-03-15)
PROC: 0DB78ZX Excision of Stomach, Pylorus, Via Natural or Artificial Opening Endoscopic, Diagnostic (ICD-10-PCS; 2025-03-15)
PROC: 0DBM8ZX Excision of Descending Colon, Via Natural or Artificial Opening Endoscopic, Diagnostic (ICD-10-PCS; principal; 2025-03-15 10:00)
DX: Z12.11 Encounter for screening for malignant neoplasm of colon (principal); D12.4 Benign neoplasm of descending colon; Z98.0 Intestinal bypass and anastomosis status; Z86.0101 Personal history of adenomatous and serrated colon polyps; R10.13 Epigastric pain
CPT/HCPCS: 88305-TC; 88342-TC